=== PATIENT | female | born 1945 | race African-American/Black ===

== ENCOUNTER 2017-07-30 17:55 | Inpatient (IN) | payer MEDICARE ==
[~2017-07-30] VITALS: Ht 167.6 cm; Wt 110.4 kg
[~2017-07-30 17:55] MED LIST: ERGO500014 PO; LISI-613 PO; METF500T6 PO; RIVA20TA PO; SIMV20TA6 PO
[2017-07-30] MEDS ORDERED: POTASSIUM CHLORIDE 20 MEQ ERTAB PO ONE (18:06)
[2017-07-30] MEDS ORDERED: FUROSEMIDE 10 MG/ML 4ML VIAL ONE (18:06)
[2017-07-30 18:26] LABS: BASOPHILS % (AUTO) 0.9 % (0.0-5.0); EOSINOPHILS % (AUTO) 0.7 % (0.0-8.0); LYMPHOCYTES % (AUTO) 61.5 % (21.0-51.0); MEAN CORPUSCULAR HEMOGLOBIN 23.4 pg (27.0-33.0); MEAN CORPUSCULAR HGB CONC 30.3 g/dL (32.0-36.0); MEAN CORPUSCULAR VOLUME 77.3 fL (79-99); MONOCYTES % (AUTO) 7.2 % (3.0-13.0); NEUTROPHILS % (AUTO) 29.7 % (40.0-77.0); NUCLEATED RED BLOOD CELLS 0.3 % (0.0-0.19); PLATELET COUNT (AUTO) 374 K/uL (130-400); RED CELL DISTRIBUTION WIDTH 24.2 % (11.0-15.5); WHITE BLOOD COUNT (AUTO) 6.4 K/uL (4.8-10.8)
[2017-07-30 18:27] LABS: INR 1.38 (0.85-1.15); PARTIAL THROMBOPLASTIN TIME 33.6 SEC (26.3-35.5); PROTHROMBIN TIME 14.4 SEC (9.6-11.6)
[2017-07-30 18:28] LABS: HEMATOCRIT 19.3 % (36-48)
[2017-07-30 18:30] LABS: CREATININE 1.1 mg/dL (0.5-1.5); POTASSIUM 3.7 mmol/L (3.5-5.1)
[2017-07-30] MEDS ORDERED: POTASSIUM CHLORIDE 10% ELIXIR 20 MEQ/15 ML UDCUP PO PRN (18:30)
[2017-07-30] MEDS ORDERED: LIDOCAINE HCL-MPF 1% 2ML VIAL IJ PRN (18:30)
[2017-07-30] MEDS ORDERED: DEXTROSE 50%-WATER 50 ML DISP.SYRIN IV PRN (18:30)
[2017-07-30] MEDS ORDERED: GLUCAGON 1MG KIT 1 MG ML IM PRN (18:30)
[2017-07-30] MEDS ORDERED: POTASSIUM CHLORIDE 20MEQ/100ML 100 ML IV PRN (18:30)
[2017-07-30 18:35] LABS: ALBUMIN 3.3 g/dL (3.5-5.0); BILIRUBIN,TOTAL 0.5 mg/dL (0.2-1.0); MAGNESIUM 1.9 mg/dL (1.80-2.40)
[2017-07-30 18:39] LABS: B-TYPE NATRIURETIC PEPTIDE 284 pg/mL (0-100)
[2017-07-30 19:12] LABS: HEMATOCRIT 18.7 % (36-48)
[2017-07-30 19:24] LABS: APPEARANCE,URINE Clear (CLEAR); BILIRUBIN,URINE Negative (NEGATIVE); COLOR,URINE Yellow (YELLOW); GLUCOSE, URINE (UA) Negative (NEGATIVE); KETONES,URINE Negative (NEGATIVE); LEUKOCYTE ESTERASE ,URINE Trace (NEGATIVE); NITRATE,URINE Negative (NEGATIVE); OCCULT BLOOD,URINE Negative (NEGATIVE); PH,URINE 6.5 (5.0-8.0); PROTEIN,URINE Negative (NEGATIVE); UROBILINOGEN,URINE 0.2 mg/dL (0.2-1.0)
[2017-07-30 19:29] LABS: BACTERIA,URINE Rare /HPF (None Seen); RBC,URINE None Seen /HPF (0-1); SQUAMOUS EPITHELIAL CELL,UR 0-2 /HPF (0-2); WBC,URINE None Seen /HPF (0-1)
[2017-07-30] MEDS ORDERED: FAMOTIDINE/PF 20 MG/2 ML VIAL IV ONE (19:52)
[2017-07-30] MEDS ORDERED: SODIUM CHLORIDE 0.9% 50 ML IV ONE (19:52)
[2017-07-30 20:47] LABS: RETICULOCYTE % (AUTO) 2.73 % (0.42-2.23)
[2017-07-30] MEDS: INSULIN R PO SS1 SQ SCH (21:00)
[2017-07-30 21:23] LABS: % IRON SATURATION 4.5 % (22-44)
[2017-07-30 21:35] VITALS: BP 115/67
[2017-07-30] MEDS ORDERED: SODIUM CHLORIDE 0.9% 250 ML IV ONE (22:26)
[2017-07-30] MEDS: ATORVASTATIN CALCIUM 10 MG TABLET PO SCH (22:40)
[2017-07-30 23:20] VITALS: BP 127/59
[2017-07-31 03:00] VITALS: BP 127/69
[2017-07-31] MEDS: INSULIN R PO SS1 SQ SCH ×4 (06:01→21:00)
[2017-07-31 06:10] LABS: HEMATOCRIT 23.2 % (36-48); MEAN CORPUSCULAR HEMOGLOBIN 25.7 pg (27.0-33.0); MEAN CORPUSCULAR HGB CONC 33.2 g/dL (32.0-36.0); MEAN CORPUSCULAR VOLUME 77.5 fL (79-99); NUCLEATED RED BLOOD CELLS 0.3 % (0.0-0.19); PLATELET COUNT (AUTO) 342 K/uL (130-400); RED BLOOD CELL COUNT(AUTO) 2.99 MIL/uL (4.00-5.50); RED CELL DISTRIBUTION WIDTH 21.1 % (11.0-15.5)
[2017-07-31 06:24] LABS: POTASSIUM 3.6 mmol/L (3.5-5.1)
[2017-07-31] MEDS: FUROSEMIDE 10 MG/ML 4ML VIAL IVP SCH ×2 (07:57→13:50)
[2017-07-31] MEDS: POTASSIUM CHLORIDE 10 MEQ/TAB.SA PO SCH ×2 (07:57→13:50)
[2017-07-31 08:04] VITALS: BP 130/72
[2017-07-31] MEDS: DULOXETINE HCL 30 MG CAP PO SCH (08:57)
[2017-07-31] MEDS: PREGABALIN 25 MG CAP PO SCH (08:57)
[2017-07-31] MEDS: RIVAROXABAN 20 MG TABLET PO SCH (08:58)
[2017-07-31] MEDS: FAMOTIDINE 20MG TAB 20 MG TAB PO SCH ×2 (08:58→21:38)
[2017-07-31] MEDS: LISINOPRIL 20 MG TABLET PO SCH (08:58)
[2017-07-31 11:47] VITALS: BP 104/60
[2017-07-31 16:04] VITALS: BP 121/64
[2017-07-31 20:18] VITALS: BP 107/58
[2017-07-31] MEDS: ATORVASTATIN CALCIUM 10 MG TABLET PO SCH (21:38)
[2017-07-31] MEDS: POTASSIUM CHLORIDE 20 MEQ ERTAB PO PRN (21:41)
[2017-07-31 23:40] VITALS: BP 110/50
[2017-08-01 04:24] VITALS: BP 103/60
[2017-08-01 05:43] LABS: HEMATOCRIT 24.4 % (36-48); MEAN CORPUSCULAR HEMOGLOBIN 24.7 pg (27.0-33.0); MEAN CORPUSCULAR HGB CONC 32.3 g/dL (32.0-36.0); MEAN CORPUSCULAR VOLUME 76.5 fL (79-99); NUCLEATED RED BLOOD CELLS 0.5 % (0.0-0.19); PLATELET COUNT (AUTO) 350 K/uL (130-400); RED BLOOD CELL COUNT(AUTO) 3.19 MIL/uL (4.00-5.50); WHITE BLOOD COUNT (AUTO) 6.1 K/uL (4.8-10.8)
[2017-08-01 05:58] LABS: POTASSIUM 3.7 mmol/L (3.5-5.1)
[2017-08-01 06:18] LABS: B-TYPE NATRIURETIC PEPTIDE 161 pg/mL (0-100)
[2017-08-01] MEDS: POTASSIUM CHLORIDE 10 MEQ/TAB.SA PO SCH ×2 (06:30→13:22)
[2017-08-01] MEDS: FUROSEMIDE 10 MG/ML 4ML VIAL IVP SCH ×2 (06:30→13:23)
[2017-08-01] MEDS: INSULIN R PO SS1 SQ SCH ×4 (06:31→20:54)
[2017-08-01 07:37] VITALS: BP 137/72
[2017-08-01] MEDS: FAMOTIDINE 20MG TAB 20 MG TAB PO SCH ×2 (09:05→20:53)
[2017-08-01] MEDS: PANTOPRAZOLE SODIUM 40 MG TABLET.DR PO SCH (09:05)
[2017-08-01] MEDS: PREGABALIN 25 MG CAP PO SCH (09:05)
[2017-08-01] MEDS: RIVAROXABAN 20 MG TABLET PO SCH (09:05)
[2017-08-01] MEDS: LISINOPRIL 20 MG TABLET PO SCH (09:05)
[2017-08-01] MEDS: DULOXETINE HCL 30 MG CAP PO SCH (09:05)
[2017-08-01] MEDS: POTASSIUM CHLORIDE 20 MEQ ERTAB PO PRN (09:06)
[2017-08-01 11:32] VITALS: BP 113/73
[2017-08-01 16:00] VITALS: BP 110/56
[2017-08-01 18:57] VITALS: BP 90/57
[2017-08-01] MEDS: ATORVASTATIN CALCIUM 10 MG TABLET PO SCH (20:53)
[2017-08-01 22:41] VITALS: BP 107/61
[2017-08-02 04:00] VITALS: BP 110/61
[2017-08-02 04:12] LABS: BASOPHILS % (AUTO) 0.9 % (0.0-5.0); EOSINOPHILS % (AUTO) 1.4 % (0.0-8.0); HEMATOCRIT 25.1 % (36-48); LYMPHOCYTES % (AUTO) 53.3 % (21.0-51.0); MEAN CORPUSCULAR HEMOGLOBIN 25.9 pg (27.0-33.0); MEAN CORPUSCULAR HGB CONC 33.6 g/dL (32.0-36.0); MEAN CORPUSCULAR VOLUME 77.1 fL (79-99); MONOCYTES % (AUTO) 7.7 % (3.0-13.0); NEUTROPHILS % (AUTO) 36.7 % (40.0-77.0); NUCLEATED RED BLOOD CELLS 0.2 % (0.0-0.19); PLATELET COUNT (AUTO) 329 K/uL (130-400); RED BLOOD CELL COUNT(AUTO) 3.25 MIL/uL (4.00-5.50); RED CELL DISTRIBUTION WIDTH 22.2 % (11.0-15.5)
[2017-08-02] MEDS: FUROSEMIDE 10 MG/ML 4ML VIAL IVP SCH (06:10)
[2017-08-02] MEDS: POTASSIUM CHLORIDE 10 MEQ/TAB.SA PO SCH ×2 (06:11→13:00)
[2017-08-02] MEDS: INSULIN R PO SS1 SQ SCH ×4 (06:31→20:57)
[2017-08-02 07:34] VITALS: BP 126/61
[2017-08-02] MEDS: RIVAROXABAN 20 MG TABLET PO SCH (08:50)
[2017-08-02] MEDS: DULOXETINE HCL 30 MG CAP PO SCH (08:50)
[2017-08-02] MEDS: PREGABALIN 25 MG CAP PO SCH (08:50)
[2017-08-02] MEDS: FAMOTIDINE 20MG TAB 20 MG TAB PO SCH ×2 (08:50→20:26)
[2017-08-02] MEDS: LISINOPRIL 20 MG TABLET PO SCH (08:51)
[2017-08-02] MEDS: PANTOPRAZOLE SODIUM 40 MG TABLET.DR PO SCH (08:52)
[2017-08-02] MEDS ORDERED: LACTULOSE 20 GM/30 ML UDCUP PO PRN (10:00)
[2017-08-02 10:43] VITALS: BP 105/66
[2017-08-02 16:15] VITALS: BP 133/69
[2017-08-02] MEDS ORDERED: FUROSEMIDE 40 MG TABLET PO SCH (17:00)
[2017-08-02 19:00] VITALS: BP 136/70
[2017-08-02] MEDS: ATORVASTATIN CALCIUM 10 MG TABLET PO SCH (20:26)
[2017-08-02 23:42] VITALS: BP 116/74
[2017-08-03 04:09] VITALS: BP 131/55
[2017-08-03 04:36] LABS: HEMATOCRIT 28.4 % (36-48)
[2017-08-03 04:51] LABS: CREATININE 1.1 mg/dL (0.5-1.5); POTASSIUM 4.4 mmol/L (3.5-5.1)
[2017-08-03] MEDS: INSULIN R PO SS1 SQ SCH (06:00)
[2017-08-03] MEDS: POTASSIUM CHLORIDE 10 MEQ/TAB.SA PO SCH (06:18)
[2017-08-03 07:53] VITALS: BP 105/55
[2017-08-03] MEDS: DULOXETINE HCL 30 MG CAP PO SCH (08:35)
[2017-08-03] MEDS: FAMOTIDINE 20MG TAB 20 MG TAB PO SCH (08:35)
[2017-08-03] MEDS: PREGABALIN 25 MG CAP PO SCH (08:35)
[2017-08-03] MEDS: LISINOPRIL 20 MG TABLET PO SCH (08:35)
[2017-08-03] MEDS ORDERED: FUROSEMIDE 20 MG TABLET PO SCH (09:00)
[2017-08-03] MEDS ORDERED: FERS325 PO (10:28)
[2017-08-03] MEDS ORDERED: FURO20TA6 PO (10:28)
[2017-08-03 11:39] VITALS: BP 141/67
== END 2017-08-03 16:25 | disposition home or self-care (01) | DRG 811 ==
LOC: EDH 17:55 → EDHIP 17:56 → 4CH 21:15 → 2BH 08-01 13:56 → 2DH 08-02 18:02
PROVIDERS: ADMIT Internal Medicine; ATTEND Internal Medicine
PROC: 30233N1 Transfusion of Nonautologous Red Blood Cells into Peripheral Vein, Percutaneous Approach (ICD-10-PCS; principal; 2017-07-30)
DX: D50.0 Iron deficiency anemia secondary to blood loss (chronic) (principal); I50.41 Acute combined systolic (congestive) and diastolic (congestive) heart failure; E11.22 Type 2 diabetes mellitus with diabetic chronic kidney disease; E11.42 Type 2 diabetes mellitus with diabetic polyneuropathy; I49.5 Sick sinus syndrome; K92.2 Gastrointestinal hemorrhage, unspecified; I13.0 Hypertensive heart and chronic kidney disease with heart failure and stage 1 through stage 4 chronic kidney disease, or unspecified chronic kidney disease; I48.0 Paroxysmal atrial fibrillation; E78.5 Hyperlipidemia, unspecified; Z79.01 Long term (current) use of anticoagulants; Z87.891 Personal history of nicotine dependence; E66.9 Obesity, unspecified; Z68.39 Body mass index [BMI] 39.0-39.9, adult; I35.1 Nonrheumatic aortic (valve) insufficiency; N18.9 Chronic kidney disease, unspecified; Z95.0 Presence of cardiac pacemaker; T45.515A Adverse effect of anticoagulants, initial encounter; Y92.89 Other specified places as the place of occurrence of the external cause
CPT/HCPCS: 36415; 36430; 71045; 71046; 80048; 80053; 81001; 82270; 82607; 82728; 82746; 82948; 83735; 83880; 85014; 85018; 85025; 85027; 85610; 85730; 86850; 86900; 86901; 86922; 93005; 93306; J1940; J3490; J7030; P9016